=== PATIENT | male | born 1985 | race Caucasian/White ===

== ENCOUNTER 2020-07-20 08:48 | Emergency (ER) | payer OTHER ==
[2020-07-20 08:55] VITALS: RESP 18
[2020-07-20] MEDS ORDERED: methylPREDNISolone SOD SUCCI 125 MG/2 ML VIAL IM ONE (09:02)
[2020-07-20] MEDS ORDERED: diphenhydrAMINE 50 MG/ML 1 ML VIAL IM STA (09:02)
--- NOTE | 2020-07-20 09:06 | ED ---
General Adult HPI - General Chief complaint: Skin/Abscess/Foreign Body Stated complaint: Bee Sting Time Seen by Provider: 07/20/20 08:55 Source: patient, RN notes reviewed, old records reviewed Mode of arrival: wheelchair Limitations: no limitations - History of Present Illness Initial comments: This is a 34-year-old male who presents emergency department after having been stung by a yellow jacket in the left forearm. Patient states it occurred about one hour ago. Patient states the area is red and sore and he has a little tingling in his fingers but there is no loss of sensation or loss of movement. Patient denies any shortness of breath or difficulty breathing. Patient states he was a little anxious after An eye feels a little bit tired. Denies any chest pain or palpitations. Patient denies any headache. Patient states she's been stung before and he swells up but has not had any problems breathing in the past. - Related Data Previous Rx's Medication Instructions Recorded predniSONE [Deltasone] 40 mg PO DAILY #8 tab 07/20/20 Allergies Allergy/AdvReac Type Severity Reaction Status Date / Time bee venom protein (honey bee) Allergy Dyspnea Verified 07/20/20 08:55 Review of Systems ROS Statement: Those systems with pertinent positive or pertinent negative responses have been documented in the HPI. ROS Other: All systems not noted in ROS Statement are negative. Past Medical History Past Medical History: No Reported History History of Any Multi-Drug Resistant Organisms: None Reported Past Surgical History: No Surgical Hx Reported Past Psychological History: No Psychological Hx Reported Smoking Status: Current every day smoker Past Alcohol Use History: None Reported Past Drug Use History: Marijuana General Exam - General Exam Comments Initial Comments: GENERAL: Patient is well-developed and well-nourished. Patient is nontoxic and well- hydrated and is in mild distress. ENT: Oropharynx is clear. Moist mucous membranes. EYES: The sclera were anicteric and conjunctiva were pink and moist. Extraocular movements were intact and pupils were equal round and reactive to light. Eyelids were unremarkable. PULMONARY: Unlabored respirations. Good breath sounds bilaterally. No audible rales rhonchi or wheezing was noted. CARDIOVASCULAR: There is a regular rate and rhythm without any murmurs gallops or rubs. SKIN: On the left lateral aspect of her distal forearm is an area of redness measuring about 4 cm in diameter and is mildly swollen. NEUROLOGIC: Patient is alert and oriented x3. Cranial nerves II through XII are grossly intact. Motor and sensory are also intact. Normal speech, volume and content. Symmetrical smile. MUSCULOSKELETAL: Normal extremities with adequate strength and full range of motion. No lower extremity swelling or edema. No calf tenderness. LYMPHATICS: No significant lymphadenopathy is noted PSYCHIATRIC: Normal psychiatric evaluation. Limitations: no limitations Course Vital Signs 07/20/20 08:53 Temperature 98.5 F Pulse Rate 79 Respiratory 18 Rate Blood Pressure 148/71 O2 Sat by Pulse 100 Oximetry Medical Decision Making - Medical Decision Making Patient had no shortness of breath or difficulty swallowing while in the emergency department. Patient was given Benadryl and Solu-Medrol. Disposition Clinical Impression: Bee sting reaction Disposition: HOME SELF-CARE Instructions (If sedation given, give patient instructions): Insect Bite or Sting (ED) Additional Instructions: Patient should take Benadryl when necessary for any swelling or itching. Prescriptions: predniSONE [Deltasone] 40 mg PO DAILY #8 tab Is patient prescribed a controlled substance at d/c from ED?: No Referrals: Nonstaff,Physician [REFERRING] - 1-2 days Time of Disposition: 10:00
[2020-07-20 10:10] VITALS: BP 107/76; PULSE 58; TEMP 98.2
== END 2020-07-20 10:06 | disposition home or self-care (01) ==
LOC: EC 08:48
DX: T63.441A Toxic effect of venom of bees, accidental (unintentional), initial encounter (principal); F17.200 Nicotine dependence, unspecified, uncomplicated; Z91.030 Bee allergy status
CPT/HCPCS: 99283; 96372 ×2; J1200; J2930